=== PATIENT | male | born 1965 | race Caucasian/White ===

== ENCOUNTER 2022-06-30 15:37 | Emergency (ER) | payer OTHER ==
[~2022-06-30] VITALS: Ht 182.9 cm; Wt 81.6 kg
[~2022-06-30 15:37] MED LIST: LEVAQUIN500 MG PO; N
[2022-06-30] MEDS ORDERED: FLORICET (17:22)
[2022-06-30] MEDS ORDERED: CATAFLAN (17:22)
[2022-06-30] MEDS ORDERED: MEDROLPACK PO (19:02)
== END 2022-06-30 19:24 | disposition home or self-care (01) ==
LOC: ER 15:37
DX: M54.50 Low back pain, unspecified (principal)

== ENCOUNTER 2024-09-29 09:38 | Outpatient (CLI) | payer OTHER ==
[~2024-09-29 09:38] MED LIST changes: +CATAFLAN; +FLORICET; +MEDROLPACK PO
== END 2024-09-29 09:47 | disposition home or self-care (01) ==
LOC: TOM 09:38
DX: H30.023 Focal chorioretinal inflammation of posterior pole, bilateral (principal); H30.0 Focal chorioretinal inflammation
CPT/HCPCS: 70553

== ENCOUNTER 2024-09-30 07:58 | Outpatient (CLI) | payer OTHER | END 2024-09-30 08:08 | disposition home or self-care (01) | LOC: TOM 07:58 | DX: H30.023 Focal chorioretinal inflammation of posterior pole, bilateral (principal); H30.0 Focal chorioretinal inflammation ==

== ENCOUNTER → 2024-10-05 | Outpatient (CLI) | payer OTHER | END | disposition home or self-care (01) | LOC: NUCLEAR 12:56 | DX: H30.023 Focal chorioretinal inflammation of posterior pole, bilateral (principal); H30.0 Focal chorioretinal inflammation ==

== ENCOUNTER → 2025-01-09 | Emergency (ER) | payer OTHER ==
[~2025-01-09] VITALS: Ht 182.9 cm; Wt 90.7 kg
[~2025-01-09] MED LIST changes: +CABENUVA IM; +MYCOPHENOLATE500 MG PO; +ORPHENADRINE CITRATE 30 MG/ML AMPUL IM ONE
== END | disposition home or self-care (01) ==
LOC: ER 07:23
DX: S20.213A Contusion of bilateral front wall of thorax, initial encounter (principal); W18.39XA Other fall on same level, initial encounter; Y93.89 Activity, other specified; Y92.018 Other place in single-family (private) house as the place of occurrence of the external cause; Y99.9 Unspecified external cause status; B20 Human immunodeficiency virus [HIV] disease